=== PATIENT | female | born 1995 | race Caucasian/White ===

== ENCOUNTER 2017-09-30 13:44 | Outpatient (CLI) | payer OTHER ==
[~2017-09-30] VITALS: Ht 172.7 cm; Wt 89.6 kg
[2017-09-30] MEDS ORDERED: PRENTAB9 PO (13:50)
[2017-09-30 13:52] VITALS: BP 117/79
[2017-09-30 14:40] VITALS: BP 120/79
[2017-09-30] MEDS ORDERED: BETAMETHASONE SOLUSPAN 6MG/ML INJ 5ML (J0702) IM SCH (15:00)
[2017-09-30 17:29] VITALS: BP 115/73
[2017-10-01] MEDS ORDERED: PEPC1TAB4 PO (14:11)
[2017-10-01] MEDS ORDERED: ACET50TA PO (14:11)
== END 2017-09-30 17:56 | disposition home or self-care (01) ==
LOC: M LDO 13:44 → EDBD 13:44 → M LDO 17:56
PROVIDERS: ATTEND Obstetrics & Gynecology
DX: O26.893 Other specified pregnancy related conditions, third trimester (principal); Z3A.32 32 weeks gestation of pregnancy; N89.8 Other specified noninflammatory disorders of vagina; R10.9 Unspecified abdominal pain; M54.9 Dorsalgia, unspecified; Z88.0 Allergy status to penicillin; O23.43 Unspecified infection of urinary tract in pregnancy, third trimester
CPT/HCPCS: 59025; 81001; 87491; 87591; 96372; J0702

== ENCOUNTER 2017-10-01 13:49 | Outpatient (CLI) | payer OTHER ==
[~2017-10-01] VITALS: Ht 172.7 cm; Wt 89.0 kg
[~2017-10-01 13:49] MED LIST: PRENTAB9 PO
[2017-10-01 14:01] VITALS: BP 104/71
[2017-10-01] MEDS ORDERED: ACET50TA PO (14:11)
[2017-10-01] MEDS ORDERED: PEPC1TAB4 PO (14:11)
[2017-10-01] MEDS: BETAMETHASONE SOLUSPAN 6MG/ML INJ 5ML (J0702) IM ONE ×2 (14:34→14:51)
[2017-10-01] MEDS ORDERED: LR 1,000 ML IV ONE (15:15)
[2017-10-01 15:28] VITALS: BP 112/74
[2017-10-01 16:06] VITALS: BP 117/71
[2017-10-01 16:33] VITALS: BP 118/75
== END 2017-10-01 16:34 | disposition home or self-care (01) ==
LOC: M LDO 13:49
PROVIDERS: ATTEND Obstetrics & Gynecology
DX: O26.893 Other specified pregnancy related conditions, third trimester (principal); Z3A.32 32 weeks gestation of pregnancy; O23.43 Unspecified infection of urinary tract in pregnancy, third trimester; O62.0 Primary inadequate contractions; Z88.0 Allergy status to penicillin
CPT/HCPCS: 59025; 96365; 96372; J0702

== ENCOUNTER 2017-11-02 04:21 | Outpatient (CLI) | payer OTHER | END 2017-11-02 08:20 | disposition home or self-care (01) | LOC: M LDO 04:21 | DX: O47.1 False labor at or after 37 completed weeks of gestation (principal); O26.853 Spotting complicating pregnancy, third trimester; Z3A.37 37 weeks gestation of pregnancy; Z88.0 Allergy status to penicillin | CPT/HCPCS: 59025 ==

== ENCOUNTER 2017-11-02 20:10 | Inpatient (IN) | payer OTHER ==
[2017-11-02] MEDS: LR 1,000 ML IV (22:35)
[2017-11-02] MEDS: LACTATED RINGER'S 1000 ML IV (22:35)
[2017-11-02] MEDS ORDERED: FENTANYL 2MCG/ML ROPIVACAINE 0.2% IN 0.9% NACL 200ML IVBAG As Ordered (23:12)
[2017-11-02 23:15] LABS: HEMATOCRIT 36.6 % (36.0-47.0); HEMOGLOBIN 12.2 g/dl (12.0-16.0); MEAN CORPUSCULAR HEMOGLOBIN 28.6 pg (27.0-33.0); MEAN CORPUSCULAR HGB CONC 33.3 g/dl (32.0-36.5); MEAN CORPUSCULAR VOLUME 85.9 fl (80.0-96.0); PLATELET COUNT, AUTOMATED 245 10^3/uL (150-450); RED BLOOD COUNT 4.26 10^6/uL (4.00-5.40); RED CELL DISTRIBUTION WIDTH 13.7 % (11.5-14.5); WHITE BLOOD COUNT 14.8 10^3/uL (4.0-10.0)
[2017-11-02 23:36] LABS: AMPHETAMINES URINE REFLEX NEGATIVE (NEGATIVE); BARBITURATES URINE REFLEX NEGATIVE (NEGATIVE); BENZODIAZEPINES URINE REFLEX NEGATIVE (NEGATIVE); CANNABINOIDS URINE REFLEX NEGATIVE (NEGATIVE); COCAINE METABOLITE URINE REFLE NEGATIVE (NEGATIVE); METHADONE URINE REFLEX NEGATIVE (NEGATIVE); OPIATES URINE REFLEX NEGATIVE (NEGATIVE); PHENCYCLIDINE URINE REFLEX NEGATIVE (NEGATIVE)
[2017-11-02] MEDS ORDERED: NALOXONE INJ 0.4 MG/1 ML VIAL (J2310) IV (23:59)
[2017-11-02] MEDS ORDERED: EPIDURAL/PCA KEYS XX (23:59)
[2017-11-02] MEDS ORDERED: LACTATED RINGER'S 1000 ML IV (23:59)
[2017-11-02] MEDS ORDERED: ONDANSETRON 4MG/2ML VIAL (J2405) IV (23:59)
[2017-11-02] MEDS ORDERED: diphenhydrAMINE INJ 50MG/ML VIAL (J1200) IV (23:59)
[2017-11-02] MEDS ORDERED: REFRIGERATOR IV KEYS XX (23:59)
[2017-11-02] MEDS ORDERED: EPIDURAL COMMENT XX (23:59)
[2017-11-02] MEDS ORDERED: ePHEDrine SULFATE 25 MG/5 ML(5MG/ML) SYRINGE IV (23:59)
[2017-11-02] MEDS ORDERED: FENTANYL/ROPIVACAINE/NACL BAG 200 ML EPIDURAL (23:59)
[2017-11-03] MEDS ORDERED: OXYTOCIN 30 UNITS IN 0.9% NaCl 500ML IV BAG (J2590) As Ordered (03:04)
[2017-11-03] MEDS: OXYTOCIN DRIP 30 UNITS in APPROPRIATE DILUENT 1 EA IV (04:24)
[2017-11-03] MEDS ORDERED: MEASLES,MUMPS,RUBELLA VACCINE INJ (MMR-II) (90707) SC (04:30)
[2017-11-03] MEDS ORDERED: RHOGAM 300 MCG (1500 IU) INJ (J2790) IM (04:30)
[2017-11-03] MEDS: IBUPROFEN 800 MG TAB PO ×2 (05:01→16:04)
[2017-11-03] MEDS: LR 1,000 ML IV (06:35)
[2017-11-03] MEDS: ACETAMINOPHEN 500 MG TAB PO ×2 (09:25→17:34)
[2017-11-03] MEDS: PRENATAL VITAMINS CHEWABLE TABLET PO (09:25)
[2017-11-04] MEDS: ACETAMINOPHEN 500 MG TAB PO ×3 (00:10→20:01)
[2017-11-04] MEDS: IBUPROFEN 800 MG TAB PO ×4 (00:10→23:48)
[2017-11-04 06:29] LABS: HEMATOCRIT 34.5 % (36.0-47.0); HEMOGLOBIN 11.1 g/dl (12.0-16.0); MEAN CORPUSCULAR HGB CONC 32.2 g/dl (32.0-36.5); MEAN CORPUSCULAR VOLUME 87.1 fl (80.0-96.0); PLATELET COUNT, AUTOMATED 240 10^3/uL (150-450); RED BLOOD COUNT 3.96 10^6/uL (4.00-5.40); RED CELL DISTRIBUTION WIDTH 13.9 % (11.5-14.5); WHITE BLOOD COUNT 12.1 10^3/uL (4.0-10.0)
[2017-11-04] MEDS: PRENATAL VITAMINS CHEWABLE TABLET PO (08:16)
[2017-11-04 12:05] LABS: HBSAG L&D NEGATIVE (NEGATIVE)
[2017-11-04 12:06] LABS: RUBELLA IgG QUALITATIVE IMMUNE (IMMUNE)
[2017-11-04 12:27] LABS: HIV 1&2 SCREEN CENTAUR NEGATIVE (NEGATIVE)
[2017-11-04] MEDS: DOCUSATE SODIUM 100 MG CAP PO (20:01)
[2017-11-04] MEDS: DIBUCAINE 1% OINTMENT 30GM TOP (20:02)
[2017-11-05] MEDS: ACETAMINOPHEN 500 MG TAB PO (04:45)
[2017-11-05] MEDS: PRENATAL VITAMINS CHEWABLE TABLET PO (08:07)
[2017-11-05] MEDS: IBUPROFEN 800 MG TAB PO (08:08)
== END 2017-11-05 12:50 | disposition home or self-care (01) | DRG 775 ==
LOC: M LDO 20:10 → M OBS 11-03 11:26 → M LDI 22:43
PROVIDERS: Obstetrics & Gynecology
PROC: 10E0XZZ Delivery of Products of Conception, External Approach (ICD-10-PCS; principal; 2017-11-03)
PROC: 0HQ9XZZ Repair Perineum Skin, External Approach (ICD-10-PCS; 2017-11-03)
DX: O69.81X0 Labor and delivery complicated by cord around neck, without compression, not applicable or unspecified (principal); Z3A.38 38 weeks gestation of pregnancy; O70.0 First degree perineal laceration during delivery; Z37.0 Single live birth

== ENCOUNTER 2017-11-10 23:22 | Emergency (ER) | payer OTHER ==
[2017-11-11] MEDS: CLINDAMYCIN 150 MG CAP PO (00:18)
== END 2017-11-11 00:35 | disposition home or self-care (01) ==
LOC: M ED 23:22
DX: N61.0 Mastitis without abscess (principal)
CPT/HCPCS: 99284

== ENCOUNTER → 2018-02-15 | Outpatient (REF) | payer OTHER | LOC: M SFHCLERA 13:19 | DX: J02.9 Acute pharyngitis, unspecified (principal) ==

== ENCOUNTER 2018-09-18 12:49 | Emergency (ER) | payer OTHER ==
[2018-09-18] MEDS: NS 1,000 ML IV (13:41)
[2018-09-18] MEDS: METOCLOPRAMIDE INJ 10MG/2ML VIAL (J2765) IV (13:57)
[2018-09-18 14:04] LABS: BASO % 0.6 % (0.0-1.0); EOS # 0.1 10^3/uL (0.0-0.50); EOS % 1.5 % (0.0-3.0); HEMOGLOBIN 12.6 g/dl (12.0-15.5); IMMATURE GRANULOCYTE % 0.3 % (0-3.0); MEAN CORPUSCULAR HEMOGLOBIN 28.8 pg (27.0-33.0); MEAN CORPUSCULAR HGB CONC 32.3 g/dl (32.0-36.5); MONO # 0.5 10^3/uL (0.0-0.8); MONO % 8.2 % (0.0-5.0); NEUTROPHILS # 3.9 10^3/uL (1.8-7.7); NEUTROPHILS % 59.4 % (36.0-66.0); PLATELET COUNT, AUTOMATED 297 10^3/uL (150-450); RED BLOOD COUNT 4.38 10^6/uL (4.00-5.40); RED CELL DISTRIBUTION WIDTH 12.7 % (11.5-14.5); WHITE BLOOD COUNT 6.5 10^3/uL (4.0-10.0)
[2018-09-18 14:06] LABS: CONTROL LINE UCG INT CTR LINE PRESENT; URINE PREG TEST NEGATIVE (NEGATIVE)
[2018-09-18 14:09] LABS: AMORPHOUS SEDIMENT RFX LARGE (NEGATIVE); KETONE, URINE AUTO RFX NEGATIVE (NEGATIVE); LEUKOCYTE ESTERASE UR AUTO RFX NEGATIVE (NEGATIVE); MUCUS, URINE RFX SMALL (NEGATIVE); NITRITE, URINE AUTO RFX NEGATIVE (NEGATIVE); RBC, URINE AUTO RFX 2 /HPF (0-3); SPECIFIC GRAVITY UR AUTO RFX 1.019 (1.002-1.035); SQUAM EPITHELIAL CELL UR AURFX 0 /HPF (0-6); WBC, URINE AUTO RFX 0 /HPF (0-3)
[2018-09-18 14:35] LABS: ANION GAP 7 MEQ/L (8-16); BLOOD UREA NITROGEN 17 MG/DL (7-18); CALCIUM LEVEL 9.2 MG/DL (8.5-10.1); CARBON DIOXIDE LEVEL 26 MEQ/L (21-32); CHLORIDE LEVEL 106 MEQ/L (98-107); CK-MB VALUE MASS < 1.0 NG/ML (<3.6); CPK CREATINE PHOSPHOKINASE 129 U/L (26-192); CREATININE FOR GFR 0.69 MG/DL (0.55-1.30); GLOMERULAR FILTRATION RATE > 60.0 (>60); GLUCOSE, FASTING 86 MG/DL (70-100); MAGNESIUM LEVEL 2.1 MG/DL (1.8-2.4); MB/CK RELATIVE INDEX 0.78 (< OR =4); SODIUM LEVEL 139 MEQ/L (136-145); TROPONIN I < 0.02 NG/ML (< 0.10)
== END 2018-09-18 14:56 | disposition home or self-care (01) ==
LOC: M ED 12:49
DX: R42 Dizziness and giddiness (principal); I45.19 Other right bundle-branch block; G43.909 Migraine, unspecified, not intractable, without status migrainosus; Z87.891 Personal history of nicotine dependence; Z88.0 Allergy status to penicillin
CPT/HCPCS: J2765

== ENCOUNTER 2018-10-20 19:10 | Emergency (ER) | payer OTHER | END 2018-10-20 19:29 | disposition left against medical advice (07) | LOC: M ED 19:10 | DX: Z53.29 Procedure and treatment not carried out because of patient's decision for other reasons (principal) ==

== ENCOUNTER 2018-10-26 11:56 | Emergency (ER) | payer OTHER ==
[~2018-10-26] VITALS: Ht 172.7 cm; Wt 86.4 kg
[~2018-10-26 11:56] MED LIST changes: +BUTA50TA PO; +CLEO300C2 PO; +COLA100C5 PO; +DIBU10OI TOP; +IBUP-1114 PO; +MAPA500T17 PO; +MAXA10TA14 PO; +PEPC1TAB5 PO; +VITA500T3 PO; +[UNRECOGNIZED DRUG - OTHER]
[2018-10-26] MEDS ORDERED: IBUP-1114 PO (12:10)
[2018-10-26] MEDS ORDERED: IBUPROFEN 600 MG TAB PO ONE (12:30)
--- NOTE | 2018-10-26 12:58 | REP ---
Clinical: Trauma. Technique: AP, lateral, bilateral oblique views right foot. Findings: The osseous structures and joint spaces are intact and normal. There is no evidence for acute fracture or dislocation. Surrounding soft tissues are unremarkable. No subcutaneous emphysema or radiodense foreign body. Impression: No acute fracture or dislocation. Electronically Signed by Aldo Castillo MD 10/26/2018 12:50 P
[2018-10-26 13:35] VITALS: BP 116/63
== END 2018-10-26 13:38 | disposition home or self-care (01) ==
LOC: M ED 11:56
DX: S90.31XA Contusion of right foot, initial encounter (principal); W22.8XXA Striking against or struck by other objects, initial encounter; Y92.018 Other place in single-family (private) house as the place of occurrence of the external cause; Z88.0 Allergy status to penicillin; Z87.891 Personal history of nicotine dependence

== ENCOUNTER → 2018-11-19 | Outpatient (CLI) | payer OTHER ==
[~2018-11-19] MED LIST changes: -MAPA500T17 PO; +MAPA500T2 PO
--- NOTE | 2018-11-20 03:21 | REP ---
Clinical: Abnormal findings on recent chest x-ray. Comparison: Chest x-ray dated 09/18/2018. Technique: Axial noncontrast images from the thoracic inlet to the upper abdomen with coronal and sagittal re-formations. Findings: The bilateral lung fernandez are well-aerated, symmetric, and clear. No consolidation, significant nodule, or mass lesion. No pleural effusion. No pneumothorax. Tracheobronchial tree is patent. The possible left hilar nodularity suggested by x-ray is not apparent and likely represented summation shadows rather than true abnormality. Mediastinum demonstrates normal thoracic aorta, pulmonary vasculature and heart/pericardium. No axillary, hilar, or mediastinal adenopathy noted. Small amount of residual thymic tissue is suggested in the anterior mediastinum. Surrounding musculoskeletal structures are intact and normal. Impression: Normal noncontrast chest CT. No acute mediastinal or pleuroparenchymal process appreciated. Electronically Signed by Aldo Castillo MD 11/20/2018 03:12 A
== END ==
LOC: M RAD 18:26
PROVIDERS: ATTEND Internal Medicine
DX: R91.8 Other nonspecific abnormal finding of lung field (principal)

== ENCOUNTER → 2019-01-13 | Outpatient (REF) | payer OTHER | LOC: M SFHCLERA 18:18 | PROVIDERS: ATTEND Physician Assistant | DX: L98.9 Disorder of the skin and subcutaneous tissue, unspecified (principal) ==

== ENCOUNTER 2019-02-15 16:30 | Emergency (ER) | payer OTHER ==
[~2019-02-15] VITALS: Ht 172.7 cm; Wt 88.6 kg
--- NOTE | 2019-02-15 18:53 | REPVR ---
EXAM: US Pelvis Complete, Transabdominal and US Pelvis, Transvaginal and US Duplex Artery and Vein, Ovaries, Complete EXAM DATE/TIME: 02/15/2019 6:16 PM CLINICAL HISTORY: 24 years old, female; Pain; Pelvic pain; Additional info: Lower pelvic pain/discharge, iud placed 02/12/19 TECHNIQUE: Imaging protocol: Real-time transabdominal and transvaginal pelvic ultrasound (complete) with image documentation. Transvaginal imaging was used for better evaluation of the endometrium and adnexa. Real-time duplex ultrasound scan of the arterial and venous flow of the ovaries with B-mode, color Doppler flow and spectral waveform analysis. Complete transabdominal pelvis ultrasound and complete duplex were performed. COMPARISON: No relevant prior studies available. FINDINGS: Uterus/cervix: The uterus was best visualized transvaginally, measuring 8.0 x 4.5 x 6.4 cm. It is retroverted and homogeneous in echotexture, without demonstrated lesion. The endometrium measures 11.7 mm in thickness transvaginally. Intrauterine device is in place. Right adnexa: The right ovary measures 3.5 x 5.0 x 3.9 cm, as best visualized transvaginally. It demonstrates normal internal arterial and venous flow. Peak systolic velocity 8.4 cm/s, end diastolic velocity 3.2 cm/s, resistive index 0.62. It contains a 4.3 x 3.0 x 3.3 cm hemorrhagic cyst. Left adnexa: The left ovary measures 1.9 x 3.3 x 2.7 cm, as best visualized transvaginally. It demonstrates normal internal arterial and venous flow. Peak systolic velocity 17.7 cm/s, end diastolic velocity 6.4 cm/s, resistive index 0.64. It contains multiple follicles. Free fluid: No significant free fluid is demonstrated in the cul-de-sac. Bladder: Normal. IMPRESSION: 1. Intrauterine device in place, with the endometrium 11.7 mm in thickness. 2. 4.3 cm hemorrhagic right ovarian cyst. Follow-up not needed. 3. Normal internal flow to both ovaries, without torsion. Electronically signed by: Jose Giron On 02/15/2019 18:52:59 PM
[2019-02-15] MEDS ORDERED: KETO10TAB PO (19:14)
[2019-02-15] MEDS ORDERED: KETOROLAC 60 MG/2 ML VIAL (J1885) IM ONE (19:15)
[2019-02-15 19:17] VITALS: BP 127/80
[2019-02-15 19:23] LABS: CHLAMYDIA DNA AMPLIFICATION NEGATIVE (NEGATIVE); GC DNA AMPLIFICATION NEGATIVE (NEGATIVE)
--- NOTE | 2019-02-16 13:41 | ED PDOC ---
Post-Departure Follow-Up ft tong brennan and dr gallagher faxed formal report of pelvic us for fu Genoveva Rainey MD Feb 16, 2019 13:41
== END 2019-02-15 19:22 | disposition home or self-care (01) ==
LOC: M ED 16:30
DX: N83.201 Unspecified ovarian cyst, right side (principal); N89.8 Other specified noninflammatory disorders of vagina; Z87.42 Personal history of other diseases of the female genital tract; Z88.5 Allergy status to narcotic agent; Z88.0 Allergy status to penicillin; Z79.899 Other long term (current) drug therapy
CPT/HCPCS: 76830; 76856; 81001; 87210; 87491; 87591; 93976; 96372; 99284; J1885

== ENCOUNTER 2019-05-30 21:32 | Emergency (ER) | payer OTHER ==
[~2019-05-30] VITALS: Ht 172.7 cm; Wt 90.9 kg
[~2019-05-30 21:32] MED LIST changes: +CYAN500T8 PO; +KETO10TAB PO; -VITA500T3 PO
[2019-05-30] MEDS ORDERED: ALBUTEROL 90 MCG/ACT 8GM HFA INHALER INH ONE (23:00)
[2019-05-30] MEDS ORDERED: BENZONATATE 100 MG CAP PO ONE (23:00)
[2019-05-30] MEDS ORDERED: BENZ200C70 PO (23:02)
[2019-05-30] MEDS ORDERED: AFRI0.058 (23:02)
[2019-05-30] MEDS ORDERED: MUCI600T31 PO (23:02)
[2019-05-30 23:19] VITALS: BP 127/87
--- NOTE | 2019-05-31 21:19 | ECGEPIP ---
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
--- NOTE | 2019-06-01 07:51 | REP ---
PA and lateral chest: Comparison is 09/18/2018. The lung fernandez are clear. The cardiac size is normal. The araceli, mediastinum, and skeletal structures are unremarkable. Impression: Negative PA and lateral chest. Electronically Signed by Osbaldo Plummer MD 05/31/2019 07:57 A
== END 2019-05-30 23:19 | disposition home or self-care (01) ==
LOC: M ED 21:32
DX: J06.9 Acute upper respiratory infection, unspecified (principal); Z88.0 Allergy status to penicillin

== ENCOUNTER 2019-08-15 14:34 | Emergency (ER) | payer OTHER ==
[~2019-08-15] VITALS: Ht 172.7 cm; Wt 92.4 kg
[~2019-08-15 14:34] MED LIST changes: +AFRI0.058; +BENZ200C70 PO; +MUCI600T31 PO
[2019-08-15 14:59] LABS: BASO % 0.5 % (0.0-1.0); EOS # 0.2 10^3/uL (0.0-0.5); EOS % 2.1 % (0.0-3.0); HEMATOCRIT 40.9 % (36.0-47.0); HEMOGLOBIN 13.4 g/dl (12.0-15.5); LYMPH # 2.3 10^3/uL (1.5-5.0); LYMPH % 30.2 % (24.0-44.0); MEAN CORPUSCULAR HEMOGLOBIN 29.8 pg (27.0-33.0); MEAN CORPUSCULAR HGB CONC 32.8 g/dl (32.0-36.5); MEAN CORPUSCULAR VOLUME 90.9 fl (80.0-96.0); MONO # 0.6 10^3/uL (0.0-0.8); MONO % 8.1 % (0.0-5.0); NEUTROPHILS # 4.5 10^3/uL (1.5-8.5); NEUTROPHILS % 58.8 % (36.0-66.0); PLATELET COUNT, AUTOMATED 262 10^3/uL (150-450); WHITE BLOOD COUNT 7.7 10^3/uL (4.0-10.0)
[2019-08-15 15:26] LABS: ALBUMIN 3.8 GM/DL (3.2-5.2); ALT/SGPT 29 U/L (12-78); BILIRUBIN,DIRECT 0.1 MG/DL (0.0-0.2); BILIRUBIN,TOTAL 0.3 MG/DL (0.2-1.0); BLOOD UREA NITROGEN 20 MG/DL (7-18); CALCIUM LEVEL 8.7 MG/DL (8.5-10.1); CARBON DIOXIDE LEVEL 25 MEQ/L (21-32); CHLORIDE LEVEL 107 MEQ/L (98-107); CREATININE FOR GFR 0.75 MG/DL (0.55-1.30); GLOMERULAR FILTRATION RATE > 60.0 (>60); GLUCOSE, FASTING 85 MG/DL (70-100); LIPASE 120 U/L (73-393); POTASSIUM SERUM 3.8 MEQ/L (3.5-5.1); SODIUM LEVEL 139 MEQ/L (136-145); TOTAL PROTEIN 7.2 GM/DL (6.4-8.2)
[2019-08-15 15:28] LABS: HCG, SERUM QUALITATIVE NEGATIVE (NEGATIVE)
[2019-08-15] MEDS ORDERED: PARA1IUD (15:32)
[2019-08-15] MEDS ORDERED: ISOVUE-370 76% 100ML VIAL (Q9967) As Ordered ONE (16:28)
[2019-08-15] MEDS ORDERED: ONDANSETRON 4MG/2ML VIAL (J2405) IV ONE (16:30)
[2019-08-15] MEDS ORDERED: NS 1,000 ML IV ONE (16:30)
[2019-08-15] MEDS ORDERED: KETOROLAC 30 MG/ML VIAL (J1885) IV ONE (16:30)
--- NOTE | 2019-08-15 19:30 | REPVR ---
PROCEDURE INFORMATION: Exam: US Pelvis, Transvaginal Exam date and time: 08/15/2019 6:07 PM Clinical history: 24 years old, female; Pelvic pain; Additional info: Lower abdominal pain, R ovarian cyst TECHNIQUE: Imaging protocol: Real-time transvaginal pelvic ultrasound with image documentation. Transvaginal imaging was used for better evaluation of the endometrium and adnexa. COMPARISON: US PELVIC NON-OB COMPLETE 02/15/2019 5:57 PM FINDINGS: Uterus/cervix: The uterus is retroverted and measures 8.2 cm in its cephalocaudad dimension and 3.9 x 5.1 cm in its AP and lateral dimensions transabdominal. The uterus measures 7.0 cm in its cephalocaudad dimension and 4.1 x 5.7 cm in its AP and lateral dimensions transvaginal. The endometrium measures IUD in the uterus. The endometrium measures 11 mm transvaginal. Right adnexa: The right ovary measures 3.4 x 3.7 x 2.5 cm and demonstrates blood flow and a more homogeneous complex nodule measuring 2.2 x 2.8 x 1.9 cm. Left adnexa: The left ovary measures 2.3 x 2.9 x 2.8 cm and demonstrates blood flow. Bladder: The urinary bladder is somewhat decompressed measuring 4.9 x 2.2 x 1.9 cm. Free fluid: No significant free fluid. IMPRESSION: 1. IUD in satisfactory position the uterus. 2. Complex nodule in the right ovary measuring 2.2 x 2.8 x 1.9 cm which may reflect a hemorrhagic cyst. Electronically signed by: Alek Cueva On 08/15/2019 19:30:06 PM
[2019-08-15 19:45] VITALS: BP 121/74
--- NOTE | 2019-08-16 07:50 | REP ---
REASON: right lower quadrant pain. CONTRAST: 100 mL Isovue 370. The lung bases are clear. The liver, gallbladder, spleen, pancreas, adrenal glands, and kidneys are normal. The abdominal aorta and para-aortic regions are normal. The bowel loops and their mesenteries are normal. The appendix is well visualized and it is normal. There is no free fluid or free air. CT PELVIS: In the right adnexa, there is a low density structure with an enhancing wall likely a right ovarian cyst. This measures approximately 2.3 cm. There is a T-shaped radiodensity in the uterus consistent with an IUD. There is no free fluid or free air in the pelvis. The pelvic bowel loops are unremarkable. The osseous structures are normal. IMPRESSION: Probably right ovarian cyst. Ultrasound is recommended. Electronically Signed by Davey Glaser DO 08/16/2019 09:00 A
--- NOTE | 2019-08-16 18:59 | ECGEPIP ---
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
== END 2019-08-15 20:02 | disposition home or self-care (01) ==
LOC: M ED 14:34
DX: N83.291 Other ovarian cyst, right side (principal); Z87.448 Personal history of other diseases of urinary system; Z97.5 Presence of (intrauterine) contraceptive device; Z88.0 Allergy status to penicillin; Z88.1 Allergy status to other antibiotic agents
CPT/HCPCS: 74177; 76376; 76830; 76856; 80048; 80076; 81001; 83690; 84703; 85025; 87086; 93005; 93976; 96361; 96374; 96375; 99284; J1885; J2405; Q9967

== ENCOUNTER 2019-09-09 07:14 | Emergency (ER) | payer OTHER ==
[~2019-09-09] VITALS: Ht 172.7 cm; Wt 93.3 kg
[~2019-09-09 07:14] MED LIST changes: +PARA1IUD
[2019-09-09] MEDS ORDERED: ADVI100T PO (07:20)
[2019-09-09 07:58] LABS: BASO % 0.3 % (0.0-1.0); EOS # 0.1 10^3/uL (0.0-0.5); EOS % 1.5 % (0.0-3.0); HEMATOCRIT 39.3 % (36.0-47.0); HEMOGLOBIN 12.5 g/dl (12.0-15.5); LYMPH # 1.3 10^3/uL (1.5-5.0); LYMPH % 21.6 % (24.0-44.0); MEAN CORPUSCULAR HEMOGLOBIN 29.3 pg (27.0-33.0); MEAN CORPUSCULAR HGB CONC 31.8 g/dl (32.0-36.5); MONO # 0.4 10^3/uL (0.0-0.8); MONO % 6.8 % (0.0-5.0); NEUTROPHILS # 4.2 10^3/uL (1.5-8.5); NEUTROPHILS % 69.5 % (36.0-66.0); PLATELET COUNT, AUTOMATED 235 10^3/uL (150-450); RED BLOOD COUNT 4.27 10^6/uL (4.00-5.40)
[2019-09-09 08:20] LABS: BLOOD UREA NITROGEN 19 MG/DL (7-18); CALCIUM LEVEL 8.8 MG/DL (8.5-10.1); CARBON DIOXIDE LEVEL 25 MEQ/L (21-32); CHLORIDE LEVEL 108 MEQ/L (98-107); GLOMERULAR FILTRATION RATE > 60.0 (>60); GLUCOSE, FASTING 95 MG/DL (70-100); POTASSIUM SERUM 3.7 MEQ/L (3.5-5.1); SODIUM LEVEL 140 MEQ/L (136-145)
--- NOTE | 2019-09-09 08:35 | REP ---
KUB: Single view. History: Left flank pain. Rule out stone. Findings: There is clothing artifact. IUD is seen in the central pelvis. There are phleboliths in the pelvis bilaterally. No calcifications suggestive of urinary tract calculus is seen. Psoas margins and flank stripes are intact. Bowel gas pattern is normal. Impression: Negative KUB. Electronically Signed by Edgar Yeager MD 09/09/2019 08:27 A
--- NOTE | 2019-09-09 08:49 | REP ---
Pelvic sonography: History: Left lower quadrant pain. History of ovarian cyst. Comparison sonography August 15, 2019. Comparison CT study same date. IUD in place. Sonographic findings: Transabdominal and transvaginal scanning are included. Retroverted uterus is again seen with dimensions of 8.6 x 4.3 x 5.2 cm. Endometrial echo 0.4 cm thick. IUD is seen in good position. No focal uterine lesion is seen. No free fluid is noted. Normal ovaries are seen bilaterally. Right ovarian dimensions are 4.2 x 2.8 x 3.4 cm. Left ovary measures 4.2 x 2.6 x 2.5 cm. Normal Doppler flow is seen to both ovaries. Resistive indices are 0.57 and 0.54 on the right and left respectively. Impression: Retroverted uterus containing an IUD in good position. Normal pelvic sonography. Electronically Signed by Edgar Yeager MD 09/09/2019 10:22 A
[2019-09-09 09:00] VITALS: BP 121/67
== END 2019-09-09 09:23 | disposition home or self-care (01) ==
LOC: M ED 07:14
DX: R31.9 Hematuria, unspecified (principal); Z88.0 Allergy status to penicillin; Z97.5 Presence of (intrauterine) contraceptive device

== ENCOUNTER → 2019-11-25 | Outpatient (REF) | payer OTHER ==
[~2019-11-25] MED LIST changes: +ADVI100T PO
== END ==
LOC: M SFHCLERA 19:22
PROVIDERS: ATTEND Nurse Practitioner Family
DX: R68.89 Other general symptoms and signs (principal)

== ENCOUNTER 2020-05-06 21:20 | Emergency (ER) | payer OTHER ==
[~2020-05-06] VITALS: Ht 172.7 cm; Wt 93.9 kg
[2020-05-06 21:20] VITALS: BP 132/82
[2020-05-06] MEDS ORDERED: SERT-138 PO (21:28)
[2020-05-06] MEDS ORDERED: NAPR-885 (21:28)
[2020-05-06] MEDS ORDERED: GABA-1171 PO (21:28)
[2020-05-06] MEDS ORDERED: ABIL1TAB13 PO (21:28)
[2020-05-06] MEDS ORDERED: KEFL500C17 PO (21:52)
[2020-05-06] MEDS ORDERED: CEPHALEXIN 500 MG CAP PO ONE (22:00)
== END 2020-05-06 21:59 | disposition home or self-care (01) ==
LOC: M ED 21:20
DX: L03.115 Cellulitis of right lower limb (principal); F17.200 Nicotine dependence, unspecified, uncomplicated; G43.909 Migraine, unspecified, not intractable, without status migrainosus; Z79.899 Other long term (current) drug therapy; Z88.0 Allergy status to penicillin

== ENCOUNTER 2021-02-24 13:55 | Emergency (ER) | payer OTHER ==
[~2021-02-24] VITALS: Ht 175.3 cm; Wt 89.8 kg
[~2021-02-24 13:55] MED LIST changes: +ABIL1TAB13 PO; +CYAN500T14 PO; -CYAN500T8 PO; -DIBU10OI TOP; +DIBU28OI2 TOP; +GABA-1171 PO; +KEFL500C17 PO; +NAPR-885; +SERT-138 PO
[2021-02-24] MEDS ORDERED: SERT-141 PO (14:10)
[2021-02-24] MEDS ORDERED: ACETAMINOPHEN 500 MG TAB PO ONE (15:00)
[2021-02-24 15:40] LABS: BASO % 0.4 % (0.0-1.0); EOS # 0.1 10^3/uL (0.0-0.5); EOS % 1.5 % (0.0-3.0); HEMATOCRIT 40.4 % (36.0-47.0); HEMOGLOBIN 12.9 g/dl (12.0-15.5); LYMPH # 2.1 10^3/uL (1.5-5.0); LYMPH % 22.6 % (24.0-44.0); MEAN CORPUSCULAR HEMOGLOBIN 29.3 pg (27.0-33.0); MEAN CORPUSCULAR HGB CONC 31.9 g/dl (32.0-36.5); MEAN CORPUSCULAR VOLUME 91.8 fl (80.0-96.0); MONO # 0.5 10^3/uL (0.0-0.8); MONO % 5.3 % (2.0-8.0); NEUTROPHILS # 6.6 10^3/uL (1.5-8.5); NEUTROPHILS % 69.8 % (36.0-66.0); PLATELET COUNT, AUTOMATED 278 10^3/uL (150-450); WHITE BLOOD COUNT 9.5 10^3/uL (4.0-10.0)
--- NOTE | 2021-02-24 16:03 | REP ---
INDICATION: pelvic cramping, positive hcg. COMPARISON: None. TECHNIQUE: Transabdominal and transvaginal scanning or performed. FINDINGS: A normal-sized empty uterus is seen with dimensions of 7.7 x 4.6 x 5.0 cm. No intrauterine gestation is seen. Endometrial echo is 1.6 cm thick. There is a small sliver of fluid visible adjacent the uterine fundus consistent with physiologic fluid. No adnexal mass or significant cyst is seen. Doppler flow is confirmed in both ovaries. Ovaries are morphologically unremarkable. Right ovarian dimensions are 3.7 x 3.4 x 2.2 cm. Left ovary measures 3.4 x 2.5 x 1.8 cm. Resistive index in the right ovary 0.50 and that in the left ovary 0.61. IMPRESSION: Normal-sized empty uterus. No intrauterine gestational sac, adnexal mass, or significant free fluid seen. Nonspecific sonographic findings in this patient with positive test. Clinical and possibly sonographic follow-up suggested. <Electronically signed by Parker Yeager > 02/24/21 [id number]
[2021-02-24 16:05] LABS: ALBUMIN 4.2 GM/DL (3.2-5.2); ALT/SGPT 30 U/L (12-78); BILIRUBIN,DIRECT 0.2 MG/DL (0.0-0.2); BILIRUBIN,TOTAL 0.5 MG/DL (0.2-1.0); BLOOD UREA NITROGEN 12 MG/DL (7-18); CALCIUM LEVEL 9.1 MG/DL (8.5-10.1); CARBON DIOXIDE LEVEL 25 MEQ/L (21-32); CHLORIDE LEVEL 109 MEQ/L (98-107); CREATININE FOR GFR 0.72 MG/DL (0.55-1.30); GLOMERULAR FILTRATION RATE > 60.0 (>60); GLUCOSE, FASTING 89 MG/DL (70-100); HCG, SERUM QUANTITATIVE 132 MIU/ML; LIPASE 103 U/L (73-393); POTASSIUM SERUM 3.7 MEQ/L (3.5-5.1); SODIUM LEVEL 139 MEQ/L (136-145); TOTAL PROTEIN 7.5 GM/DL (6.4-8.2)
[2021-02-24] MEDS ORDERED: MACR100C43 PO (17:06)
[2021-02-24] MEDS ORDERED: 3 DA2CRE PV (17:06)
[2021-02-24] MEDS ORDERED: NITROFURANTOIN (MACROBID) 100 MG CAP PO ONE (17:10)
[2021-02-24 17:25] VITALS: BP 137/73
[2021-02-24 18:41] LABS: CHLAMYDIA DNA AMPLIFICATION NEGATIVE (NEGATIVE); GC DNA AMPLIFICATION NEGATIVE (NEGATIVE)
== END 2021-02-24 17:27 | disposition home or self-care (01) ==
LOC: M ED 13:55
DX: O23.40 Unspecified infection of urinary tract in pregnancy, unspecified trimester (principal); B37.3 Candidiasis of vulva and vagina; O99.519 Diseases of the respiratory system complicating pregnancy, unspecified trimester; J45.909 Unspecified asthma, uncomplicated; Z79.899 Other long term (current) drug therapy; Z88.0 Allergy status to penicillin; O99.320 Drug use complicating pregnancy, unspecified trimester; F12.20 Cannabis dependence, uncomplicated; Z3A.00 Weeks of gestation of pregnancy not specified

== ENCOUNTER 2021-03-30 14:21 | Emergency (ER) | payer OTHER ==
[~2021-03-30] VITALS: Ht 175.3 cm; Wt 88.2 kg
[~2021-03-30 14:21] MED LIST changes: +3 DA2CRE PV; +MACR100C43 PO; +SERT-141 PO
[2021-03-30] MEDS ORDERED: SERT50TA29 (14:31)
[2021-03-30] MEDS ORDERED: PREN27TA3 (14:31)
[2021-03-30] MEDS ORDERED: ACETAMINOPHEN 500 MG TAB PO ONE (16:20)
[2021-03-30] MEDS ORDERED: NS 1,000 ML IV ONE (16:20)
[2021-03-30 17:24] LABS: BASO # 0.1 10^3/uL (0.0-0.2); BASO % 0.8 % (0.0-1.0); EOS # 0.2 10^3/uL (0.0-0.5); EOS % 2.8 % (0.0-3.0); HEMATOCRIT 42.4 % (36.0-47.0); HEMOGLOBIN 13.5 g/dl (12.0-15.5); LYMPH # 1.9 10^3/uL (1.5-5.0); LYMPH % 30.6 % (24.0-44.0); MEAN CORPUSCULAR HEMOGLOBIN 29.3 pg (27.0-33.0); MEAN CORPUSCULAR HGB CONC 31.8 g/dl (32.0-36.5); MEAN CORPUSCULAR VOLUME 92.2 fl (80.0-96.0); MONO # 0.5 10^3/uL (0.0-0.8); MONO % 7.7 % (2.0-8.0); NEUTROPHILS # 3.7 10^3/uL (1.5-8.5); NEUTROPHILS % 57.9 % (36.0-66.0); PLATELET COUNT, AUTOMATED 251 10^3/uL (150-450); WHITE BLOOD COUNT 6.4 10^3/uL (4.0-10.0)
[2021-03-30 17:48] LABS: ALBUMIN 4.2 GM/DL (3.2-5.2); ALT/SGPT 39 U/L (12-78); BILIRUBIN,DIRECT 0.1 MG/DL (0.0-0.2); BILIRUBIN,TOTAL 0.4 MG/DL (0.2-1.0); CK-MB VALUE MASS < 1.0 NG/ML (<3.6); CPK CREATINE PHOSPHOKINASE 127 U/L (26-192); FREE T4 0.88 NG/DL (0.76-1.46); HCG, SERUM QUANTITATIVE 31 MIU/ML; MAGNESIUM LEVEL 2.4 MG/DL (1.8-2.4); MB/CK RELATIVE INDEX 0.79 (< OR =4); THYROID STIMULATING HORMONE 0.763 uIU/ML (0.358-3.740); TOTAL PROTEIN 7.7 GM/DL (6.4-8.2); TROPONIN I < 0.02 NG/ML (< 0.10)
[2021-03-30] MEDS ORDERED: ONDA4TAB6 PO (19:28)
[2021-03-30 19:50] VITALS: BP 134/73
== END 2021-03-30 19:52 | disposition home or self-care (01) ==
LOC: M ED 14:21
DX: O98.511 Other viral diseases complicating pregnancy, first trimester (principal); B34.9 Viral infection, unspecified; O99.511 Diseases of the respiratory system complicating pregnancy, first trimester; J45.909 Unspecified asthma, uncomplicated; O99.341 Other mental disorders complicating pregnancy, first trimester; F33.9 Major depressive disorder, recurrent, unspecified; Z3A.01 Less than 8 weeks gestation of pregnancy; Z79.899 Other long term (current) drug therapy; Z86.69 Personal history of other diseases of the nervous system and sense organs; Z87.42 Personal history of other diseases of the female genital tract; Z82.5 Family history of asthma and other chronic lower respiratory diseases; Z88.0 Allergy status to penicillin

== ENCOUNTER 2021-04-21 09:42 | Emergency (ER) | payer OTHER ==
[~2021-04-21] VITALS: Ht 172.7 cm; Wt 88.3 kg
[~2021-04-21 09:42] MED LIST changes: +ONDA4TAB6 PO; +PREN27TA3; +SERT50TA29
[2021-04-21] MEDS ORDERED: PROAAER10 INH (09:58)
[2021-04-21] MEDS ORDERED: MAXA10TA15 PO (09:58)
[2021-04-21 11:06] LABS: BASO % 0.4 % (0.0-1.0); EOS # 0.2 10^3/uL (0.0-0.5); EOS % 1.8 % (0.0-3.0); HEMATOCRIT 42.9 % (36.0-47.0); HEMOGLOBIN 13.8 g/dl (12.0-15.5); LYMPH # 1.6 10^3/uL (1.5-5.0); LYMPH % 19.9 % (24.0-44.0); MEAN CORPUSCULAR HEMOGLOBIN 29.9 pg (27.0-33.0); MEAN CORPUSCULAR HGB CONC 32.2 g/dl (32.0-36.5); MEAN CORPUSCULAR VOLUME 92.9 fl (80.0-96.0); MONO # 0.7 10^3/uL (0.0-0.8); MONO % 8.4 % (2.0-8.0); NEUTROPHILS # 5.7 10^3/uL (1.5-8.5); NEUTROPHILS % 69.4 % (36.0-66.0); PLATELET COUNT, AUTOMATED 277 10^3/uL (150-450); RED BLOOD COUNT 4.62 10^6/uL (4.00-5.40); WHITE BLOOD COUNT 8.3 10^3/uL (4.0-10.0)
[2021-04-21 11:34] LABS: BLOOD UREA NITROGEN 16 MG/DL (7-18); CARBON DIOXIDE LEVEL 27 MEQ/L (21-32); CHLORIDE LEVEL 108 MEQ/L (98-107); CREATININE FOR GFR 0.76 MG/DL (0.55-1.30); GLOMERULAR FILTRATION RATE > 60.0 (>60); GLUCOSE, FASTING 76 MG/DL (70-100); HCG, SERUM QUANTITATIVE 2 MIU/ML; POTASSIUM SERUM 3.5 MEQ/L (3.5-5.1); SODIUM LEVEL 139 MEQ/L (136-145)
[2021-04-21 12:21] VITALS: BP 141/88
== END 2021-04-21 12:22 | disposition home or self-care (01) ==
LOC: M ED 09:42
DX: O03.9 Complete or unspecified spontaneous abortion without complication (principal); J45.909 Unspecified asthma, uncomplicated; Z79.899 Other long term (current) drug therapy; Z88.0 Allergy status to penicillin; Z87.42 Personal history of other diseases of the female genital tract

== ENCOUNTER → 2021-04-22 | Outpatient (CLI) | payer OTHER ==
[~2021-04-22] MED LIST changes: +MAXA10TA15 PO; +PROAAER10 INH
== END ==
LOC: M LAB 14:22
PROVIDERS: ATTEND Physician Assistant Medical
DX: O03.9 Complete or unspecified spontaneous abortion without complication (principal)